=== PATIENT | female | born 1960 | race Caucasian/White ===

== ENCOUNTER 2019-11-15 11:36 | Emergency (ER) | payer OTHER, SELFPAY ==
[2019-11-15 11:37] VITALS: BP 135/84; PULSE 74; RESP 18; TEMP 36.6; O2SAT 100; BMI 27.5
--- NOTE | 2019-11-15 11:51 | EKG12_ITS ---
Test Reason : SYNCOPE Blood Pressure : / mmHG Vent. Rate : 106 BPM Atrial Rate : 119 BPM P-R Int : 122 ms QRS Dur : 096 ms QT Int : 362 ms P-R-T Axes : 025 087 081 degrees QTc Int : 480 ms Sinus tachycardia with occasional Premature ventricular complexes Nonspecific ST abnormality Abnormal ECG Confirmed by TRACY ROWE, NITHIN ([id number]), makeup editor SANNA MISHRA ([id number]) on 11/18/2019 3:36:28 PM Referred By: EDDI Confirmed By:NITHIN MOLINA MD
--- NOTE | 2019-11-15 11:51 | CT_ITS ---
STUDY: CT BRAIN WITHOUT CONTRAST REASON FOR EXAM: Female, 59 years old. SYNCOPAL EPISODE 40 MIN AGO RADIATION DOSAGE (If Supplied By Facility): CTDIvol = ( 44.99 ) mGy, DLP = ( 745.49 ) mGycm TECHNIQUE: Transaxial CT imaging of the brain was performed without administration of intravenous contrast material. Individualized dose optimization techniques were used for this CT. COMPARISON: No relevant priors. FINDINGS: Normal soft tissue structures. Normal calvarium. Normal size ventricles and extra-axial spaces for the patient''s age. Normal white matter tracts of the cerebral hemispheres. Normal basal ganglia and thalami. Normal brainstem. Normal cerebellum. There is no intracranial hemorrhage. There are no findings of an acute ischemic infarction. Normal visualized paranasal sinuses. CT/Brain/Head without Contrast IMPRESSION: Normal unenhanced CT scan of the brain. Electronically Signed: Teddy Amaro, at 13:18 EST , Service support ,
--- NOTE | 2019-11-15 11:52 | CT_ITS ---
STUDY: CTA CHEST REASON FOR EXAM: Female, 59 years old. PE, CP, MVP RADIATION DOSAGE (If Supplied By Facility): CTDIvol = ( 10.40 ) mGy, DLP = ( 386.83 ) mGycm TECHNIQUE: The examination was performed with the intravenous administration of IV 100mL Isovue-370. Post-processing of the angiographic images was performed, with multiplanar reformation and 3D reconstruction. Individualized dose optimization techniques were used for this CT. COMPARISON: Comparison is made with prior examination dated January 04, 2015. FINDINGS: Normal enhancement of the main pulmonary artery and right and left pulmonary arteries. Normal enhancement of the bilateral peripheral pulmonary arteries. There is no demonstrated pulmonary embolism. Normal thoracic aorta and visualized great vessels. There is no demonstrated aortic dissection. Sternal cerclage wires are present from a prior sternotomy. Prior mitral valve replacement. Mild cardiomegaly. Normal mediastinum. Normal hilar regions. Normal visualized trachea and bronchi. The lungs are well expanded. Normal pulmonary parenchyma. Normal pleura. Normal chest wall structures. Normal osseous structures. Normal visualized upper abdomen. CT/CTA Chest W/WO Contrast IMPRESSION: Prior sternotomy and mitral valve replacement. No acute abnormality is seen. Electronically Signed: Teddy Amaro, at 13:49 EST , Service support ,
--- NOTE | 2019-11-15 11:55 | ED.VIS.GEN ---
History of Present Illness Chief Complaint: Syncope Narrative: Presents after syncopal episode. She was alone at home had what sounded like a brief loss of consciousness with rapid full recovery, she knows this because the TV was on and it did not get very far. She has no abrasions over the tongue no shoulder pain she has no history of seizure. She woke up right away and she was lucid. She denies any chest pain or back pain she has no leg pain or calf pain she has no lower extremity edema no recent travel she did however have mitral valve surgery 2 months ago. Past Medical History - Allergies and Home Meds Allergies/Adverse Reactions: Allergies Penicillins Allergy (Verified 11/15/19 11:39) Hives Primary Care Physician: Grady Cortez III, MD [Primary Care Provider] - Past Medical History: - - Recent mitral valve repair Smoking Status: Never smoker - Family History Maternal Family History: Reports: No pertinent history Paternal Family History: Reports: COPD, Heart Disease Review of Systems All systems negative except as indicated General: Reports: - - Syncope as in HPI. Denies: Fever Eyes: Denies: Visual changes - bilaterally ENT: Denies: Right ear pain, Sore throat Cardiovascular: Denies: Chest pain, Palpitations Respiratory: Denies: Dyspnea, Cough Genitourinary: Denies: Dysuria Musculoskeletal: Denies: Myalgias Skin: Denies: Rash Neurological: Denies: Headache, Weakness Physical Exam Vital Signs/Narrative: Vital Signs Temp Pulse Resp BP Pulse Ox 11/15/19 11:37 97.9 F 74 18 135/84 H 100 General: Well nourished, Well developed Eyes: Perrl, EOMI ENT: Moist mucous membranes Neck: Supple Cardiovascular: Irregular Respiratory: No distress, CTA bilaterally Abdomen: Soft, Nontender Back: Nontender, Normal Inspection Extremities: Nontender, No edema Skin: Normal color, No rash Neurological: Alert, Oriented x3, Normal Strength, Normal Sensation, Normal Gait Psychological: Normal affect Diagnostic/Tx/Re-eval - Rhythm Strip Rhythm Strip: Sinus arrhythmia Rate: 106 Ectopy: PVC(s) - EKG Initial EKG Interpretation: Sinus Rhythm, - - There is an irregular sinus rhythm. AL interval is normal QTC is slightly elevated at 480. Nonspecific ST changes throughout. - Medical Decision Making Patient has a normal work-up. No signs of pulmonary embolism. She feels well. She was ambulated and did not feel near syncopal. She has no murmur on auscultation she recently had an appointment with cardiology which was normal. I believe she is safe for discharge if she gets chest pain shortness of breath lightheadedness or any other symptoms she needs to return. ED Disposition - Plan for ED Patient: Disposition: Home or Assisted Living Diagnosis: Syncope Instructions: SYNCOPE, Unk Cause Referrals: Grady Cortez III, MD [Primary Care Provider] - 3-5 Days
[2019-11-15] MEDS: 0.9% Normal Saline 1,000 ML 1000 ML IV (12:37)
[2019-11-15 12:43] LABS: Absolute Lymphocyte Count 2.83 X10^3/uL (0.83-4.51); Absolute Neutrophil Count 4.1 X10^3/uL (2.0-7.7); Basophil# 0.08 X10^3/uL; Eosinophil# 0.23 X10^3/uL; Eosinophils% 2.9 % (0-5); Hematocrit 39.9 % (37-47); Hemoglobin 12.8 g/dL (12.0-15.0); Lymphocyte # 2.83 X10^3/ul (4.0); Lymphocyte % 36.1 % (19-41); Mean Corp Hgb Conc 32.1 g/dL (32-36); Mean Corpuscular Hgb 27.8 pg (27.0-32.0); Mean Corpuscular Volume 86.6 fL (81-99); Mean Platelet Vol. 9.5 fl (6.2-12.0); Monocyte# 0.53 X10^3/uL; Monocyte% 6.8 % (0-10); NRBC Flagged by Analyzer 0 % (0-5); Neutrophil # 4.14 X10^3/uL (2.7-7.7); Neutrophil % 52.9 % (47-70); Platelet Count 371 K/mm3 (150-450); RBC Distribution Width CV 13.3 % (11.6-14.6); RBC Distribution Width SD 41.8 fl (35.1-43.9); Red Blood Count 4.61 M/mm3 (4.2-5.4); White Blood Count 7.8 K/mm3 (4.4-11.0)
[2019-11-15 12:53] LABS: ALB/GLOB Ratio 0.9 RATIO (0.9-2.4); AST(SGOT) 17 U/L (15-37); Alanine Aminotransfer ALT/SGPT 14 U/L (13-56); Albumin, Serum 3.7 g/dL (3.2-5.0); Alkaline Phosphatase 84 U/L (45-117); Anion Gap 4 (5-15); BUN 17 mg/dL (7-18); Calcium,Total 9.5 mg/dL (8.5-10.1); Chloride 109 mmol/L (98-107); Creatinine, Serum 0.95 mg/dL (0.55-1.02); EST Glomerular Filtration Rate 64 mL/min (>60); Est Glom Filt Rate - Afr Amer 77 mL/min (>60); Estimated Creatinine Clearance 44.67 ml/min; Globulin 4.1 g/dL (2.2-4.2); Glucose 114 mg/dL (74-106); Potassium 3.9 mmol/L (3.5-5.1); Protein, Total 7.8 g/dL (6.4-8.2); Sodium Level 142 mmol/L (136-145)
[2019-11-15 13:27] VITALS: RESP 18
[2019-11-15 14:50] VITALS: RESP 16
[2019-11-15 15:06] VITALS: BP 136/81; PULSE 84; RESP 17; O2SAT 100
== END 2019-11-15 15:07 | disposition home or self-care (01) ==
PROVIDERS: Emergency Provider Emergency Medicine; PCP Family Medicine
DX: R55 Syncope and collapse (principal); Z79.82 Long term (current) use of aspirin; Z88.0 Allergy status to penicillin; Z95.2 Presence of prosthetic heart valve
CPT/HCPCS: 70450; 71275; 80053; 84484; 85025; 93005; 96360; 96361; 99283; J7030; Q9967; A4216

== ENCOUNTER 2020-11-20 10:30 | Outpatient (RCR) | payer OTHER, SELFPAY ==
[2020-11-20] MEDS: COVID-19 VACC, MRNA(PFIZER)/PF 30 MCG/0.3 ML SYRINGE IM (14:11)
[2020-12-11] MEDS: COVID-19 VACC, MRNA(PFIZER)/PF 30 MCG/0.3 ML SYRINGE IM (13:57)
== END 2021-02-16 23:59 ==
LOC: IMMUN 10:30
PROVIDERS: PCP Family Medicine; Visit Provider Family Medicine
DX: Z23 Encounter for immunization (principal)
CPT/HCPCS: 0001A; 0002A; 91300

== ENCOUNTER → 2021-06-30 09:29 | Outpatient (CLI) | payer OTHER, SELFPAY ==
--- NOTE | 2021-06-30 09:32 | ECHOD_ITS ---
Reason For Study: MVP Procedure This was a 2D Doppler, Color Flow transthoracic echocardiogram. The study was technically difficult. Exam performed in department. Left Ventricle Normal LV size. Left ventricular systolic function is normal. The estimated ejection fraction is 60 %. Diastolic function is indeterminate. No regional wall motion abnormalities noted. Right Ventricle Normal RV size. Normal systolic function. Atria The left atrium is mildly enlarged. Normal right atrium. No doppler evidence for ASD. Mitral Valve Moderate diffuse mitral valve thickening. Moderate focal mitral valve calcification of the posterior leaflet. The mitral valve chordae are thickened and/or calcified. An annuloplasty ring is noted in the mitral position. Trivial transvalvular insufficiency of the mitral valve. Tricuspid Valve Normal tricuspid valve. Mild to moderate (1-2+) tricuspid valve insufficiency. Right ventricular systolic pressure estimated to be 26 mmHg. Aortic Valve Trisinus/trileaflet aortic valve. Normal aortic valve. Pulmonic Valve The pulmonic valve is not well visualized. Trivial pulmonic valve insufficiency. Great Vessels Normal sized aortic root. Pericardium/Pleural No pericardial effusion. MMode/2D Measurements & Calculations LVIDd: 4.7 cm IVSd: 0.88 cm Ao root diam: 3.2 cm LVIDs: 3.1 cm LVPWd: 0.87 cm RVDd: 3.0 cm FS: 33.1 % LAV(MOD-bp): 41.2 ml LA A4 area: 16.6 cm2 LA dimension(2D): 3.7 cm LAV(MOD-bp) Indexed: 24.6 ml/m2 LAV(MOD-sp2): 41.8 ml LAV(MOD-sp4): 37.3 ml RA A4 area: 16.1 cm2 Doppler Measurements & Calculations MV E max lambert: 96.6 cm/sec Lat Peak E' Lambert: 7.5 cm/sec Med Peak E' Lambert: 5.2 cm/sec MV A max lambert: 88.2 cm/sec E/E' lat: 12.9 E/E' med: 18.5 MV E/A: 1.1 MV V2 max: 97.7 cm/sec Ao V2 max: 105.8 cm/sec LV V1 max: 72.0 cm/sec MV max P.8 mmHg Ao max P.5 mmHg LV V1 max P.1 mmHg MV V2 mean: 52.2 cm/sec MV mean P.3 mmHg MV V2 VTI: 41.0 cm PA V2 max: 64.3 cm/sec TR max lambert: 240.4 cm/sec MV P1/2t-pr_phl: 163.3 msec TR max P.1 mmHg ECHO/Echo Complete Interpretation Summary The study was technically difficult. Left ventricular systolic function is normal. The estimated ejection fraction is 60 %. The left atrium is mildly enlarged. An annuloplasty ring is noted in the mitral position. Moderate diffuse mitral valve thickening. Moderate focal mitral valve calcification of the posterior leaflet. The mitral valve chordae are thickened and/or calcified. Trivial transvalvular insufficiency of the mitral valve. Mild to moderate (1-2+) tricuspid valve insufficiency. Trivial pulmonic valve insufficiency. Right ventricular systolic pressure estimated to be 26 mmHg. Diastolic function is indeterminate. Ordering Physician: Gege Cole Referring Physician: Gege Cole Performed By: Charmaine Pisano, RDCS, RVT
== END ==
PROVIDERS: PCP Internal Medicine; Referring Provider Internal Medicine; Visit Provider Internal Medicine
DX: Z98.890 Other specified postprocedural states (principal)
CPT/HCPCS: 93306

== ENCOUNTER → 2022-05-24 | Outpatient (CLI) | payer OTHER, SELFPAY ==
--- NOTE | 2022-05-24 07:53 | ECHOD_ITS ---
Reason For Study: MVP/REPAIR Procedure This was a 2D Doppler, Color Flow transthoracic echocardiogram. The exam was of adequate technical quality. Exam performed in department. Left Ventricle Normal LV size. Left ventricular systolic function is normal. The estimated ejection fraction is 60 %. Post operative septal motion. Stage 2 diastolic dysfunction. Right Ventricle Normal RV size. Normal systolic function. Atria The left atrium is mildly enlarged. Normal right atrium. No doppler evidence for ASD. Mitral Valve Moderate diffuse mitral valve thickening. Moderate focal mitral valve calcification of the posterior leaflet. An annuloplasty ring is noted in the mitral position. Trivial transvalvular insufficiency of the mitral valve. Tricuspid Valve Normal tricuspid valve. Moderate (2+) tricuspid valve insufficiency. Right ventricular systolic pressure estimated to be 35 mmHg. Aortic Valve Trisinus/trileaflet aortic valve. Normal aortic valve. Trivial aortic valve insufficiency. Pulmonic Valve The pulmonic valve is not well visualized. Trivial pulmonic valve insufficiency. Great Vessels Normal sized aortic root. Pericardium/Pleural No pericardial effusion. MMode/2D Measurements & Calculations LVIDd: 4.6 cm IVSd: 1.1 cm Ao root diam: 3.0 cm LVIDs: 3.0 cm LVPWd: 1.0 cm RVDd: 3.1 cm FS: 33.3 % LAV(MOD-bp): 79.4 ml LVAd ap4: 26.3 cm2 SV(MOD-sp4): 47.4 ml LAV(MOD-bp) Indexed: 47.4 ml/m2 LVLd ap4: 6.6 cm LAV(MOD-sp2): 78.3 ml EDV(MOD-sp4): 87.9 ml LAV(MOD-sp4): 73.5 ml EDV(sp4-el): 89.5 ml LVAs ap4: 16.9 cm2 LVLs ap4: 5.9 cm ESV(MOD-sp4): 40.5 ml ESV(sp4-el): 40.6 ml EF(MOD-sp4): 53.9 % EF(sp4-el): 54.6 % SV(sp4-el): 48.9 ml LA A4 area: 23.2 cm2 LA dimension(2D): 3.6 cm RA A4 area: 16.8 cm2 Time Measurements MV dec time: 0.19 sec Doppler Measurements & Calculations MV E max lambert: 120.5 cm/sec Lat Peak E' Lambert: 10.3 cm/sec Med Peak E' Lambert: 5.8 cm/sec MV A max lambert: 76.8 cm/sec E/E' lat: 11.7 E/E' med: 20.8 MV E/A: 1.6 MV V2 max: 118.7 cm/sec Ao V2 max: 121.7 cm/sec MV max P.6 mmHg MV dec slope: 624.7 cm/sec2 Ao max P.9 mmHg MV V2 mean: 68.4 cm/sec Ao V2 mean: 85.5 cm/sec MV mean P.2 mmHg Ao mean P.3 mmHg MV V2 VTI: 40.4 cm Ao V2 VTI: 32.6 cm LV V1 max: 85.0 cm/sec PA V2 max: 55.7 cm/sec TR max lambert: 281.0 cm/sec LV V1 max P.9 mmHg TR max P.6 mmHg LV V1 mean P.7 mmHg LV V1 mean: 61.1 cm/sec LV V1 VTI: 21.8 cm ECHO/Echo Complete Interpretation Summary Left ventricular systolic function is normal. The estimated ejection fraction is 60 %. Post operative septal motion. The left atrium is mildly enlarged. An annuloplasty ring is noted in the mitral position. Moderate diffuse mitral valve thickening. Moderate focal mitral valve calcification of the posterior leaflet. Trivial transvalvular insufficiency of the mitral valve. Moderate (2+) tricuspid valve insufficiency. Trivial aortic valve insufficiency. Trivial pulmonic valve insufficiency. Right ventricular systolic pressure estimated to be 35 mmHg. Stage 2 diastolic dysfunction. Ordering Physician: Jordi Crawford Referring Physician: Jordi Crawford Performed By: Heaven Brasher RCS
== END | disposition home or self-care (01) ==
LOC: CVS 07:52
PROVIDERS: PCP Internal Medicine; Referring Provider Internal Medicine Cardiovascular Disease; Visit Provider Internal Medicine Cardiovascular Disease
DX: Z98.890 Other specified postprocedural states (principal)
CPT/HCPCS: 93306

== ENCOUNTER → 2022-09-27 | Outpatient (CLI) | payer OTHER, SELFPAY ==
--- NOTE | 2022-09-27 13:45 | BI_ITS ---
MAMMOGRAPHY - BILATERAL SCREENING REASON FOR EXAM: Female, 61 years old. Routine annual screening examination. PERTINENT HISTORY: Non-contributory. Prior left breast aspiration. TECHNIQUE: Digital bilateral breast hayley (3D mammographic acquisition) in the CC and MLO projections. 2-D mediolateral oblique (MLO) and craniocaudad (CC) views of both breasts were obtained. CAD: Full Field Digital Mammography with Computer Added Detection was performed. COMPARISON: Comparison is made with prior outside examination dated 11/04/2020. FINDINGS: Breast Composition: The breasts are heterogeneously dense, which may obscure small masses. There are no dominant masses or suspicious calcifications. No other significant abnormalities are identified. There has been no significant change since the prior study. BI/SCRN MAMM (CAD)W/HAYLEY BILAT IMPRESSION: Stable bilateral screening mammogram. Yearly follow-up mammogram recommended. (A) ASSESSMENT CATEGORY: BIRADS Category 1: Negative. A letter regarding these results will be sent to the patient by the facility within 30 days. Approximately 10% of breast cancers are not detected by mammography. A normal mammogram should not delay biopsy of a clinically suspicious abnormality. [id number] Electronically Signed: Teddy Amaro MD at 14:26 EST ,
== END | disposition home or self-care (01) ==
LOC: OPBI 13:37
PROVIDERS: PCP Internal Medicine; Referring Provider Internal Medicine; Visit Provider Internal Medicine
DX: Z12.31 Encounter for screening mammogram for malignant neoplasm of breast (principal)
CPT/HCPCS: 77063; 77067

== ENCOUNTER → 2023-05-30 | Outpatient (CLI) | payer BC, SELFPAY ==
[2023-05-30 09:26] LABS: Absolute Lymphocyte Count 2.92 X10^3/uL (0.83-4.51); Absolute Neutrophil Count 3.8 X10^3/uL (2.0-7.7); Basophil# 0.07 X10^3/uL; Basophil% 0.9 % (0-1); Eosinophil# 0.24 X10^3/uL; Eosinophils% 3.1 % (0-5); Hemoglobin 14.7 g/dL (12.0-15.0); Lymphocyte # 2.92 X10^3/ul (0.83-4.51); Lymphocyte % 37.5 % (19-41); Mean Corp Hgb Conc 33.4 g/dL (32-36); Mean Corpuscular Hgb 30.8 pg (27.0-32.0); Mean Corpuscular Volume 92.1 fL (81-99); Mean Platelet Vol. 9.8 fl (6.2-12.0); Monocyte# 0.77 X10^3/uL; Monocyte% 9.9 % (0-10); NRBC Flagged by Analyzer 0 % (0-5); Neutrophil # 3.76 X10^3/uL (2.7-7.7); Neutrophil % 48.3 % (47-70); Platelet Count 360 K/mm3 (150-450); RBC Distribution Width CV 13.2 % (11.6-14.6); RBC Distribution Width SD 45.1 fl (35.1-43.9); Red Blood Count 4.78 M/mm3 (4.2-5.4); White Blood Count 7.8 K/mm3 (4.4-11.0)
[2023-05-30 09:58] LABS: Vitamin D,25 Hydroxy 42.7 ng/mL
[2023-05-30 10:07] LABS: AST(SGOT) 21 U/L (15-37); Alanine Aminotransfer ALT/SGPT 21 U/L (13-56); Albumin, Serum 3.9 g/dL (3.2-5.0); Alkaline Phosphatase 83 U/L (45-117); Anion Gap 5 (5-15); BUN 15 mg/dL (7-18); BUN/Creat Ratio 17.9 RATIO (10-20); Calcium,Total 9.5 mg/dL (8.5-10.1); Chloride 106 mmol/L (98-107); Cholesterol 218 mg/dL (200); Creatinine, Serum 0.84 mg/dL (0.55-1.02); EST Glomerular Filtration Rate 73 mL/min (>60); Est Glom Filt Rate - Afr Amer 88 mL/min (>60); Free T3 2.4 pg/mL (2.18-3.98); Globulin 3.9 g/dL (2.2-4.2); Glucose 90 mg/dL (74-106); High Density Lipoprotein 74 mg/dL; Magnesium 2.3 mg/dL (1.6-2.6); Potassium 3.9 mmol/L (3.5-5.1); Protein, Total 7.8 g/dL (6.4-8.2); Sodium Level 139 mmol/L (136-145); T4 Free Direct 1.13 ng/dL (0.76-1.46); Thyroid Stim Hormone (TSH) 1.79 uIU/mL (0.358-3.74); Triglycerides 87 mg/dL; Very Low Density Lipoprotein 17 mg/dL (5-40)
== END | disposition home or self-care (01) ==
LOC: PSN 10:19
PROVIDERS: PCP Internal Medicine; Referring Provider Nurse Practitioner Family; Visit Provider Nurse Practitioner Family
DX: I49.3 Ventricular premature depolarization (principal); I07.1 Rheumatic tricuspid insufficiency; Z86.79 Personal history of other diseases of the circulatory system; R07.9 Chest pain, unspecified; Z13.220 Encounter for screening for lipoid disorders; E55.9 Vitamin D deficiency, unspecified; R00.2 Palpitations; Z98.890 Other specified postprocedural states
CPT/HCPCS: 36415; 80053; 80061; 82306; 83735; 84439; 84443; 84481; 85025; 93225; 93226

== ENCOUNTER → 2023-05-31 | Outpatient (CLI) | payer BC, SELFPAY ==
--- NOTE | 2023-05-31 10:53 | ECHOD_ITS ---
Reason For Study: PALPITATIONS Procedure This was a 2D Doppler, Color Flow transthoracic echocardiogram. Exam performed in department. Left Ventricle Normal LV size. Left ventricular systolic function is normal. The estimated ejection fraction is 60 %. No regional wall motion abnormalities noted. Right Ventricle Normal RV size. Normal systolic function. Atria Normal left atrium. Normal right atrium. Mitral Valve There is mild to moderate mitral annular calcification. Status post mitral valve repair with annuloplasty ring. Tricuspid Valve Normal tricuspid valve. Mild (1+) tricuspid valve insufficiency. Pulmonary artery systolic pressure is 29 mmHg. Aortic Valve Trisinus/trileaflet aortic valve. Pulmonic Valve Normal pulmonic valve. Great Vessels Normal aortic root. The pulmonary artery is normal size. Normal inferior vena cava. Pericardium/Pleural No pericardial effusion. MMode/2D Measurements & Calculations LVIDd: 4.5 cm IVSd: 0.84 cm Ao root diam: 2.9 cm LVIDs: 3.1 cm LVPWd: 0.88 cm RVDd: 3.3 cm FS: 30.5 % LAV(MOD-bp): 26.1 ml LA A4 area: 12.2 cm2 LA dimension(2D): 3.5 cm LAV(MOD-bp) Indexed: 15.4 ml/m2 LAV(MOD-sp2): 25.6 ml LAV(MOD-sp4): 22.4 ml RA A4 area: 12.5 cm2 Time Measurements MV dec time: 0.28 sec Doppler Measurements & Calculations MV E max lambert: 90.3 cm/sec Lat Peak E' Lambert: 13.0 cm/sec Med Peak E' Lambert: 6.4 cm/sec MV A max lambert: 84.1 cm/sec E/E' lat: 7.0 E/E' med: 14.1 MV E/A: 1.1 MV P1/2t max lambert: 100.4 cm/sec Ao V2 max: 116.8 cm/sec LV V1 max: 85.3 cm/sec MV P1/2t: 90.5 msec Ao max P.5 mmHg LV V1 max P.9 mmHg MV dec slope: 325.0 cm/sec2 MVA(P1/2t): 2.4 cm2 PA V2 max: 78.0 cm/sec TR max lambert: 249.6 cm/sec TR max P.9 mmHg ECHO/Echo Complete Interpretation Summary Status post mitral valve repair with annuloplasty ring. Normal LV size. Left ventricular systolic function is normal. The estimated ejection fraction is 60 %. Pulmonary artery systolic pressure is 29 mmHg. There is mild to moderate mitral annular calcification. Ordering Physician: Gege Cole Referring Physician: Gege Cole Performed By: Selene Pettit RDCS
== END | disposition home or self-care (01) ==
LOC: CVS 10:52
PROVIDERS: PCP Internal Medicine; Referring Provider Internal Medicine; Visit Provider Internal Medicine
DX: R00.2 Palpitations (principal); I07.1 Rheumatic tricuspid insufficiency; Z98.890 Other specified postprocedural states; Z86.79 Personal history of other diseases of the circulatory system
CPT/HCPCS: 93306

== ENCOUNTER → 2023-11-13 | Outpatient (CLI) | payer BC, SELFPAY ==
--- NOTE | 2023-11-13 10:11 | BI_ITS ---
MAMMOGRAPHY - BILATERAL SCREENING 3-D TOMOSYNTHESIS REASON FOR EXAM: Female, 63 years old. Breast cancer screening PERTINENT HISTORY: No significant family history. TECHNIQUE: 2-D mammograms and 3-D Tomosynthesis of the breast (s) were performed. CAD was performed. COMPARISON: 09/27/2022 FINDINGS: The breast composition is heterogeneously dense that can obscure small breast masses. Scattered benign calcifications are seen. No dense spiculated masses or suspicious microcalcifications are identified. No architectural distortion is identified. There is no skin thickening or retraction. There has been no significant change since the prior study. BI/SCRN MAMM (CAD)W/HAYLEY BILAT IMPRESSION: No mammographic signs of malignancy. Routine yearly mammograms recommended. ASSESSMENT CATEGORY: BIRADS Category 1: Negative. A letter regarding these results will be sent to the patient by the facility within 30 days. FOLLOW UP RECOMMENDATION: Yearly follow up mammogram recommended. (A) Approximately 10% of breast cancers are not detected by mammography. A normal mammogram should not delay biopsy of a clinically suspicious abnormality. Electronically Signed: Hussain Gomez MD at 16:20 EST ,
--- OUTSIDE RECORDS SUMMARY | 2023-11-13 10:42 | XMS RPT_ITS | CCD ---
Author Name Unknown Address [address] [place] [address] Organization [facility] Results Test Name Value Interpretation Reference Range Facil ity Clinical Note 09-09-2021 Note Date & Type Note Facility 09-09-2021 Note Patient Outreach (MINDA TNKO) BARBARASAVANNAH Jennifer ([id number]) 1960 F Date Time Provider Department 09/09/21 KARIN ALMANZA During your visit today, we recorded the following information about you: Karin Almanza MA 09/09/2021 9:57 AM Signed POPULATION HEALTH NAVIGATION OUTREACH Action/FYI Upon reviewing the patient's chart, it has been found in Care Everywhere that Dr. Gege Cole with [facility] is her PCP. PCP field has been updated. Patient had an establish care appointment on 06/17/2021 with new PCP. Contact made with patient or family member? NO Pt identified by name and : NO Outreach Outcome/Action PCP field updated Reason for Outreach Attribution: Provider Off-boarding Payer: Payor: CIGNA / Plan: CIGNA OAP / Product Type: Open Access / Care Gap Reviewed:: Reminder: Reminder note to check Health Maintenance for items below Health Maintenance items due: HIV SCREENING Never done DEPRESSION SCREENING due on 09/11/2020 INFLUENZA(1) due on 05/12/2021 PAP TESTING due on 09/01/2021 HPV TESTING due on 09/01/2021 MAMMOGRAM due on 11/04/2021 Advanced Directives Completed: Have you ever planned for future healthcare decisions with a power of nib assembler, living will, or advance directives? Referrals: Message Sent to Practice: Navigation Signature: Karin Almanza MA September 09, 2021 9:51 AM Allergies As of Date: 09/09/2021 Noted Allergy Reaction PENICILLINS 08/30/2006 4 - Hives Date Reviewed: 05/20/2020 Reviewed by: Stacey Corona) Leila - Fully Assessed Reason for Visit: Population Health Navigation Outreach [3910] Cmt: PCP Offboarding Prescriptions as of 09/09/2021 - escitalopram oxalate (LEXAPRO) 10 mg tablet TAKE 1 TABLET BY MOUTH EVERY DAY - acetaminophen (TYLENOL) 325 mg tablet Take 1-2 tablets by mouth every 4 hours as needed for Pain or Fever. - aspirin 81 mg chewable tablet Take 1 tablet by mouth once daily. Meds Comments as of 09/16/2019: 09/16/19 The medications are managed by this patient by: PATIENT Norma Dickey Pharm-[facility] Problem List As Of Date 09/09/2021 Noted Resolved Predominant disturbance of emotions [R45.89] 08/30/2006 07/13/2016 Chest pain, unspecified [R07.9] 08/30/2006 07/13/2016 Mitral valve disorder [I05.9] 12/06/2006 Abnormal mammogram, unspecified [R92.8] 04/04/2013 07/13/2016 Breast cyst [N60.09] 04/08/2013 07/13/2016 Anxiety [F41.9] 08/02/2017 Nonrheumatic mitral valve regurgitation [I34.0] 08/28/2019 Mild tricuspid insufficiency [I07.1] 08/28/2019 Discharge planning issues [Z02.9] 08/28/2019 Preop testing [Z01.818] 08/28/2019 09/13/2019 On mechanically assisted ventilation (HCC) [Z99*09/09/2019 09/10/2019 Acute post-operative pain [G89.18] 09/09/2019 Stress hyperglycemia [R73.9] 09/09/2019 09/12/2019 Cardiac insufficiency following cardiac surgery*09/09/2019 09/10/2019 Acute blood loss anemia [D62] 09/09/2019 09/12/2019 Postoperative hypotension [I95.81] 09/10/2019 09/11/2019 Atelectasis [J98.11] 09/11/2019 09/12/2019 Transition of care performed with sharing of cl*09/12/2019 Fluid overload [E87.70] 09/12/2019 Sinus bradycardia [R00.1] 09/12/2019 Encounter Status:Closed by KARIN ALMANZA on 09/09/21 [facility] Progress note 09-09-2021 Note Date & Type Note Facility 09-09-2021 Note HNO ID: [id number] Author: Karin Almanza MA Service: ? Author Type: Health And Wellness Coordinator Type: Progress Notes Filed: 09/09/2021 9:57 AM Note Text: POPULATION HEALTH NAVIGATION OUTREACH Action/FYI Upon reviewing the patient's chart, it has been found in Care Everywhere that Dr. Gege Cole with [facility] is her PCP. PCP field has been updated. Patient had an establish care appointment on 06/17/2021 with new PCP. Contact made with patient or family member? NO Pt identified by name and : NO Outreach Outcome/Action PCP field updated Reason for Outreach Attribution: Provider Off-boarding Payer: Payor: BLAIR / Plan: BLAIR OAP / Product Type: Open Access / Care Gap Reviewed:: Reminder: Reminder note to check Health Maintenance for items below Health Maintenance items due: HIV SCREENING Never done DEPRESSION SCREENING due on 09/11/2020 INFLUENZA(1) due on 05/12/2021 PAP TESTING due on 09/01/2021 HPV TESTING due on 09/01/2021 MAMMOGRAM due on 11/04/2021 Advanced Directives Completed: Have you ever planned for future healthcare decisions with a power of nib assembler, living will, or advance directives? Referrals: Message Sent to Practice: Navigation Signature: Karin Almanza MA September 09, 2021 9:51 AM [facility] Progress note 11-19-2020 Note Date & Type Note Facility 11-19-2020 Note HNO ID: [id number] Author: Dianelys HORNE Service: ? Author Type: ? Type: Progress Notes Filed: 11/19/2020 2:40 PM Note Text: POPULATION HEALTH NAVIGATION OUTREACH Action/FYI Spoke to pt. Mammogram and colonoscopy are completed. Contact made with patient or family member? YES Pt identified by name and : YES Outreach Outcome/Action Spoke to patient or caregiver: Patient declined navigation services Reason for Outreach Care Gap or Scheduling/Wellness visits Payer: Payor: CIGNA / Plan: CIGNA OAP / Product Type: PPO / Care Gap Reviewed:: Breast Cancer screening Colorectal Cancer Screening Reminder: Reminder note to check Health Maintenance for items below Health Maintenance items due: HIV SCREENING Completed SHINGRIX VACCINE(1 of 2) Completed COLORECTAL CANCER SCREENING due on 11/16/2018 DEPRESSION SCREENING due on 09/11/2020 Advanced Directives Completed: Have you ever planned for future healthcare decisions with a power of nib assembler, living will, or advance directives? Referrals: N/A Message Sent to Practice: NO Navigation Signature: Dianelys Lowe [facility] November 19, 2020 2:36 PM [facility] Clinical Note 11-19-2020 Note Date & Type Note Facility 11-19-2020 Note Patient Outreach (NE TNAV) SAVANNAH LEUNG ([id number]) 1960 F Date Time Provider Department 11/19/20 DIANELYS LOWE (OZZIE) CODYV During your visit today, we recorded the following information about you: Dianelys Lowe PSS 11/19/2020 2:40 PM Signed POPULATION HEALTH NAVIGATION OUTREACH Action/FYI Spoke to pt. Mammogram and colonoscopy are completed. Contact made with patient or family member? YES Pt identified by name and : YES Outreach Outcome/Action Spoke to patient or caregiver: Patient declined navigation services Reason for Outreach Care Gap or Scheduling/Wellness visits Payer: Payor: CIGNA / Plan: CIGNA OAP / Product Type: PPO / Care Gap Reviewed:: Breast Cancer screening Colorectal Cancer Screening Reminder: Reminder note to check Health Maintenance for items below Health Maintenance items due: HIV SCREENING Completed SHINGRIX VACCINE(1 of 2) Completed COLORECTAL CANCER SCREENING due on 11/16/2018 DEPRESSION SCREENING due on 09/11/2020 Advanced Directives Completed: Have you ever planned for future healthcare decisions with a power of nib assembler, living will, or advance directives? Referrals: N/A Message Sent to Practice: NO Navigation Signature: Dianelys HORNE November 19, 2020 2:36 PM Allergies As of Date: 11/19/2020 Noted Allergy Reaction PENICILLINS 08/30/2006 4 - Hives Date Reviewed: 05/20/2020 Reviewed by: Stacey Corona) Leila - Fully Assessed Reason for Visit: Population Health Navigation Outreach [3910] Cmt: Deferred Care Prescriptions as of 11/19/2020 Sig: ESCITALOPRAM 10 MG TABLET Take 1 tablet by mouth once d* ACETAMINOPHEN 325 MG TABLET Take 1-2 tablets by mouth elizabeth* ASPIRIN 81 MG CHEWABLE TABLET Take 1 tablet by mouth once d* Problem List As Of Date 11/19/2020 Noted Resolved Predominant disturbance of emotions [R45.89] 08/30/2006 07/13/2016 Chest pain, unspecified [R07.9] 08/30/2006 07/13/2016 Mitral valve disorder [I05.9] 12/06/2006 Abnormal mammogram, unspecified [R92.8] 04/04/2013 07/13/2016 Breast cyst [N60.09] 04/08/2013 07/13/2016 Anxiety [F41.9] 08/02/2017 More... Nonrheumatic mitral valve regurgitation [I34.0] 08/28/2019 More... Mild tricuspid insufficiency [I07.1] 08/28/2019 Discharge planning issues [Z02.9] 08/28/2019 More... Preop testing [Z01.818] 08/28/2019 09/13/2019 More... On mechanically assisted ventilation (HCC) [Z99*09/09/2019 09/10/2019 More... Acute post-operative pain [G89.18] 09/09/2019 More... Stress hyperglycemia [R73.9] 09/09/2019 09/12/2019 More... Cardiac insufficiency following cardiac surgery*09/09/2019 09/10/2019 More... Acute blood loss anemia [D62] 09/09/2019 09/12/2019 More... Postoperative hypotension [I95.89] 09/10/2019 09/11/2019 More... Atelectasis [J98.11] 09/11/2019 09/12/2019 More... Transition of care performed with sharing of cl*09/12/2019 More... Fluid overload [E87.70] 09/12/2019 More... Sinus bradycardia [R00.1] 09/12/2019 More... Encounter Status:Closed by DIANELYS PAYTON on 11/19/20 [facility] Progress note 11-04-2020 Note Date & Type Note Facility 11-04-2020 Note HNO ID: [id number] Author: Armida Mehta (Tech) Service: ? Author Type: Forensic Dna Analyst Type: Progress Notes Filed: 11/04/2020 9:32 AM Note Text: Radiology Service Progress Note PATIENT NAME: Savannah Leung DATE OF SERVICE: November 04, 2020 TIME: 9:32 AM PATIENT IDENTITY VERIFICATION COMPLETED USING TWO (2) IDENTIFIERS: Name and Date of confirmed by patient verbally. FALL SCREENING: Has the patient had 2 falls in the last year or 1 fall with injury or currently using an Ambulatory Assistive Device (Walker, Cane, Wheelchair, Crutches, etc.)? No PATIENT GENDER DATA: Female. status: : No status: NO. PATIENT RELEVANT IMPLANT DATA REVIEWED: Not Applicable RADIOLOGY DEPARTMENT: Mammography PERIPHERAL IV DATA: Not applicable SIGNED BY: Armida Mehta November 04, 2020 9:32 AM [facility] Summary Purpose Family History No Family History Records Found Advance Directives No Advanced Directives Records Found Additional Source Comments INFORMATION SOURCE (unrecogn ized section and content) FOR RECORDS PERTAINING TO PATIENTS WHO ARE OR HAVE BEEN ENROLLED IN A CHEMICAL DEPENDENCY/SUBSTANCEABUSE PROGRAM, SOME INFORMATION MAY BE OMITTED. This clinical summary was aggregated from multiple sources. Caution should be exercised in using it in the provision of clinical care. This summary normalizes information from multiple sources, and as a consequence, information in this document may materially change the coding, format and clinical context of patient data. In addition, data may be omitted in some cases. CLINICAL DECISIONS SHOULD BE BASED ON THE PRIMARY CLINICAL RECORDS. [facility] [employer] [facility]. provides no warranty or guarantee of the accuracy or completeness of information in this document.
== END | disposition home or self-care (01) ==
LOC: OPBI 10:11
PROVIDERS: PCP Internal Medicine; Referring Provider Internal Medicine; Visit Provider Internal Medicine
DX: Z12.31 Encounter for screening mammogram for malignant neoplasm of breast (principal)
CPT/HCPCS: 77063; 77067

== ENCOUNTER → 2024-10-02 | Outpatient (CLI) | payer BC, SELFPAY ==
[2024-10-02 16:54] LABS: Absolute Lymphocyte Count 3.26 X10^3/uL (0.83-4.51); Absolute Neutrophil Count 5.5 X10^3/uL (2.0-7.7); Eosinophil# 0.11 X10^3/uL; Eosinophils% 1.1 % (0-5); Hematocrit 44.6 % (37-47); Hemoglobin 15.1 g/dL (12.0-15.0); Lymphocyte # 3.26 X10^3/ul (0.83-4.51); Mean Corp Hgb Conc 33.9 g/dL (32-36); Mean Corpuscular Hgb 30.8 pg (27.0-32.0); Mean Corpuscular Volume 90.8 fL (81-99); Mean Platelet Vol. 9.7 fl (6.2-12.0); Monocyte# 0.56 X10^3/uL; Monocyte% 5.8 % (0-10); NRBC Flagged by Analyzer 0 % (0-5); Neutrophil # 5.51 X10^3/uL (2.7-7.7); Neutrophil % 57.6 % (47-70); POSITIVE MORPHOLOGY YES; Platelet Count 372 K/mm3 (150-450); RBC Distribution Width CV 13.4 % (11.6-14.6); RBC Distribution Width SD 44.9 fl (35.1-43.9); Red Blood Count 4.91 M/mm3 (4.2-5.4); White Blood Count 9.6 K/mm3 (4.4-11.0)
[2024-10-02 16:56] LABS: Differential Indicated SCAN CRITERIA MET
[2024-10-02 17:40] LABS: AST(SGOT) 19 U/L (15-37); Alanine Aminotransfer ALT/SGPT 20 U/L (13-56); Albumin, Serum 4.2 g/dL (3.2-5.0); Alkaline Phosphatase 83 U/L (45-117); Anion Gap 8 (5-15); BUN 17 mg/dL (7-18); BUN/Creat Ratio 19.4 RATIO (10-20); Calcium,Total 9.7 mg/dL (8.5-10.1); Chloride 100 mmol/L (98-107); Creatinine, Serum 0.88 mg/dL (0.55-1.02); EST Glomerular Filtration Rate 69 mL/min (>60); Est Glom Filt Rate - Afr Amer 83 mL/min (>60); Glucose 99 mg/dL (74-106); Potassium 3.9 mmol/L (3.5-5.1); Protein, Total 8.2 g/dL (6.4-8.2); Sodium Level 136 mmol/L (136-145); Thyroid Stim Hormone (TSH) 0.809 uIU/mL (0.358-3.740)
[2024-10-02 17:42] LABS: Differential Comment SCANNED
[2024-10-02 18:02] LABS: Hepatitis C Antibody Non-Reactive (Nonreactive); Vitamin D,25 Hydroxy 26.5 ng/mL
== END | disposition home or self-care (01) ==
LOC: LAB 16:14
PROVIDERS: PCP Family Medicine Geriatric Medicine; Referring Provider Family Medicine Geriatric Medicine; Visit Provider Family Medicine Geriatric Medicine
DX: Z12.39 Encounter for other screening for malignant neoplasm of breast (principal); E78.5 Hyperlipidemia, unspecified; E55.9 Vitamin D deficiency, unspecified
CPT/HCPCS: 36415; 80053; 82306; 84443; 85025; 86803

== ENCOUNTER → 2024-12-03 | Outpatient (CLI) | payer BC, SELFPAY ==
--- NOTE | 2024-12-03 12:27 | BI_ITS ---
EXAM: PROCEDURE: MA Mammogram Digital Screen CLINICAL HISTORY: Screening COMPARISON: Mammogram studies dated 11/13/2023 and 09/27/2022 TECHNIQUE: A bilateral screening mammogram was obtained with MLO and CC views of both breasts with digital breast tomosynthesis. BREAST CANCER RISK ASSESSMENT: Does not appear to have been calculated. FINDINGS: There is a 9 mm nodular masslike density in the slightly superior, middle 3rd aspect of the right breast. Further workup is indicated. Benign round microcalcifications are seen in the right breast. No suspicious masses, suspicious calcifications or other suspicious mammogram findings are seen in the left breast. Benign-appearing round calcifications are seen in the left breast. CONCLUSION: Right Breast: BI-RADS category 0, incomplete, additional imaging needed. Left Breast: BI-RADS category 2, benign findings Breast Composition: There are scattered areas of fibroglandular density. Recommendation: Additional imaging The patient should return for an LM view of the right breast as well as spot compression CC and spot compression MLO view of the right breast nodular masslike density. An ultrasound may also be needed. Thank you for referring your patient to the [facility], if you have any questions, please call us at the performing site listed at the top of the report. [facility] , [facility] , [facility] and [facility] . Reading Location: [id number]
--- NOTE | 2024-12-03 12:29 | BD_ITS ---
EXAM: DEXA examination of lumbar spine and both hips. CLINICAL HISTORY: 64-year-old female who is postmenopausal. COMPARISON: None TECHNIQUE: DEXA examination of lumbar spine and both hips. FINDINGS: T-SCORES and BMD Lumbar spine: Bone mineral density measures (0.693) g/cm2; T-score measures -3.2. Z-score measures -1.4. Left femoral neck: Bone mineral density measures (0.627) g/cm2; T-score measures -2.0. Z-score measures -0.4. Left total hip: Bone mineral density measures 0.868) g/cm2; T-score measures -0.6. Z-score measures 0.7 Right femoral neck: Bone mineral density measures 0.615) g/cm2; T-score measures -2.1. Z-score measures 0.5. Right total hip: Bone mineral density measures (0.780) g/cm2; T-score measures -1.3. Z-score measures 0 Fracture Risk Calculation 10 Year Probability of Fracture: Major Osteoporotic Fracture: 11 % Hip Fracture: 1.6% Patient demonstrates osteoporosis of the lumbar spine. Patient demonstrates osteopenia of both hips. Reading Location: [id number]
== END | disposition home or self-care (01) ==
LOC: OPBD 12:25
PROVIDERS: PCP Family Medicine Geriatric Medicine; Referring Provider Family Medicine Geriatric Medicine; Visit Provider Family Medicine Geriatric Medicine
DX: Z12.31 Encounter for screening mammogram for malignant neoplasm of breast (principal); Z78.0 Asymptomatic menopausal state; M81.0 Age-related osteoporosis without current pathological fracture
CPT/HCPCS: 77063; 77067; 77080

== ENCOUNTER → 2024-12-06 | Outpatient (CLI) | payer BC, SELFPAY ==
--- NOTE | 2024-12-06 09:28 | BI_ITS ---
EXAM: DIAG MAMM W/CAD, UNILAT; BREAST LIMITED UNILATERAL; RT BRST UNILAT HAYLEY ADD-ON 12/06/2024 CLINICAL HISTORY: 64-year-old female presents for follow-up for right breast findings seen on examination of 12/03/2024. TECHNIQUE: Right diagnostic digital breast tomosynthesis with 2D and 3D images. Computer aided detection. Also, targeted right breast ultrasound was performed. COMPARISON: Prior exam(s) dated 12/03/2024, 11/13/2023. FINDINGS: TISSUE DENSITY: The breast tissue is composed of scattered area of fibroglandular density. Bilateral Breast Mammographic Findings: Follow-up examination performed for the focal asymmetry in the right breast visualized on examination of 12/03/2024. On the present examination, the focal asymmetry in the central right breast at middle depth does not persist. ULTRASOUND: Ultrasound performed of the retroareolar and central right breast demonstrates no sonographic correlate. There are no suspicious sonographic findings. BI/DIAG MAMM W/CAD, UNILAT IMPRESSION: There is no evidence of malignancy in the right breast. Right Breast: BIRADS 1 NEGATIVE. OVERALL FINAL ASSESSMENT: BIRADS 1 NEGATIVE. RECOMMENDATION: Routine annual follow-up in 1 Year A letter with findings and recommendations will be mailed to the patient. Reading Location: [id number]
--- NOTE | 2024-12-06 09:28 | BI_ITS ---
EXAM: DIAG MAMM W/CAD, UNILAT; BREAST LIMITED UNILATERAL; RT BRST UNILAT HAYLEY ADD-ON 12/06/2024 CLINICAL HISTORY: 64-year-old female presents for follow-up for right breast findings seen on examination of 12/03/2024. TECHNIQUE: Right diagnostic digital breast tomosynthesis with 2D and 3D images. Computer aided detection. Also, targeted right breast ultrasound was performed. COMPARISON: Prior exam(s) dated 12/03/2024, 11/13/2023. FINDINGS: TISSUE DENSITY: The breast tissue is composed of scattered area of fibroglandular density. Bilateral Breast Mammographic Findings: Follow-up examination performed for the focal asymmetry in the right breast visualized on examination of 12/03/2024. On the present examination, the focal asymmetry in the central right breast at middle depth does not persist. ULTRASOUND: Ultrasound performed of the retroareolar and central right breast demonstrates no sonographic correlate. There are no suspicious sonographic findings. BI/Rt Brst Unilat Hayley Add-On IMPRESSION: There is no evidence of malignancy in the right breast. Right Breast: BIRADS 1 NEGATIVE. OVERALL FINAL ASSESSMENT: BIRADS 1 NEGATIVE. RECOMMENDATION: Routine annual follow-up in 1 Year A letter with findings and recommendations will be mailed to the patient. Reading Location: [id number]
== END | disposition home or self-care (01) ==
PROVIDERS: PCP Family Medicine Geriatric Medicine; Referring Provider Family Medicine Geriatric Medicine; Visit Provider Family Medicine Geriatric Medicine
DX: R92.311 Mammographic fatty tissue density, right breast (principal); R92.2 Inconclusive mammogram
CPT/HCPCS: 76642; 77061; 77065; G0279